=== PATIENT | female | born 1940 | race African-American/Black ===

== ENCOUNTER 2017-10-16 10:43 | Emergency (ER) | payer MEDICARE, MEDICAID ==
[~2017-10-16] VITALS: Ht 149.9 cm; Wt 49.0 kg
[~2017-10-16 10:43] MED LIST: ADV250 IH; BACIO TP; DIVA250T45 PO; DOCU250C91 PO; LISI-660 PO; LITH600 PO; LURA40 PO; METO25 PO; QUET200XR PO; VITAD1000 PO
[2017-10-16] MEDS ORDERED: LOSA25TA21 PO (10:48)
[2017-10-16] MEDS ORDERED: DICL2100G TP (10:48)
[2017-10-16] MEDS ORDERED: CIPROFLOXACIN HCL 0.3% 2.5 ML OPHTHALMIC SOLUTION OU ONE (11:00)
[2017-10-16] MEDS ORDERED: VANCOMYCIN HCL 1 GM/D5% WATER 200 ML IV ONE ×2 (11:00→23:30)
[2017-10-16 11:28] LABS: HEMATOCRIT 38.6 % (36-46); HEMOGLOBIN 12.9 g/dL (12.0-16.0); MEAN CORPUSCULAR HEMOGLOBIN 26.5 pg (26.0-34.0); MEAN CORPUSCULAR HGB CONC 33.4 G/dL (31.0-37.0); MEAN CORPUSCULAR VOLUME 79 fL (80-100); PLATELET COUNT (AUTO) 401 K/uL (150-450); RED BLOOD CELL COUNT(AUTO) 4.87 MIL/uL (4.00-5.20); RED CELL DISTRIBUTION WIDTH 14.4 % (11.5-14.5)
[2017-10-16] MEDS ORDERED: DILTIAZEM HCL 5 MG/ML 5 ML VIAL IVP ONE ×3 (11:30→14:45)
[2017-10-16] MEDS ORDERED: ACETAMINOPHEN 500 MG TABLET PO ONE (11:30)
[2017-10-16] MEDS ORDERED: SODIUM CHLORIDE 0.9% 1,000 ML IV ONE ×2 (11:30→15:00)
[2017-10-16] MEDS ORDERED: IOVERSOL 320 MG/ML 100 ML VIAL ONE (11:31)
[2017-10-16] MEDS ORDERED: OFLOXACIN 0.3% 5 ML OPHTHALMIC SOLUTION OU ONE (11:45)
[2017-10-16 11:49] LABS: CALCIUM, TOTAL 9.7 mg/dL (8.8-10.5); CREATININE 1.14 mg/dL (0.60-1.30); POTASSIUM 3.2 mmol/L (3.5-5.1)
[2017-10-16 11:55] LABS: ALBUMIN 3.1 g/dL (3.4-5.0); BILIRUBIN,TOTAL 0.9 mg/dL (0.1-1.0); TOTAL PROTEIN, SERUM 8.3 g/dL (6.4-8.2)
[2017-10-16 12:30] LABS: BAND NEUTROPHILS % (MANUAL) 1 % (1-5); EOSINOPHILS % (MANUAL) 2 % (1-6); LYMPHOCYTES % (MANUAL) 3 % (22-44); MONOCYTES % (MANUAL) 1 % (2-9); SEGMENTED NEUTROPHILS % 93 % (40-70)
[2017-10-16] MEDS ORDERED: PIPERACILLIN/TAZO 3.375 GM/D5W 50 ML IV ONE ×2 (12:45→23:30)
[2017-10-16] MEDS ORDERED: DILTIAZEM HCL 125 MG in DEXTROSE 5%-WATER 100 ML IV PRN (14:34)
[2017-10-17 10:09] VITALS: BP 124/55
== END 2017-10-17 11:02 | disposition short-term general hospital (02) ==
LOC: EMS 10:48
DX: J39.0 Retropharyngeal and parapharyngeal abscess (principal); L03.213 Periorbital cellulitis; I48.91 Unspecified atrial fibrillation; D72.829 Elevated white blood cell count, unspecified; R73.9 Hyperglycemia, unspecified
CPT/HCPCS: 36415; 70450; 70487; 71045; 80053; 80178; 83605; 84484; 85025; 87040; 93005; 96365; 96366; 96367; 96368; 96375; 96376; 99291; J2543; J3370; J3490 ×2; J7030; J7060; Q9967